=== PATIENT | male | born 1985 | race Caucasian/White ===

== ENCOUNTER 2018-05-05 14:44 | Emergency (ER) | payer OTHER, SELFPAY ==
[2018-05-05 14:45] VITALS: BP 157/97; PULSE 95; RESP 16; TEMP 37.3; O2SAT 97; BMI 26.2
--- NOTE | 2018-05-05 14:56 | ED.VISSUMM ---
- ER Visit Summary Date of Service: 05/05/18 Chief Complaint: Laceration volar surface right forearm History of Present Illness: The patient is a 33 M who is right-handed presents with laceration volar surface right forearm. He was pushing a [employer] upper ramp. Slipped. His forearm scraped across the license plate. Immunization is not up-to-date. He denies paresthesia, anesthesia motor weakness. He is able to move all his digits. He is on no medication has no allergies. Physical Examination: Vital signs are marked for an elevated blood pressure 157/97. Patient has a gaping laceration volar surface distal third right forearm. The fascia was not violated. There is no visible ligaments or tendons noted. He is able to extend and flex at the wrist. Flexor digitorum superficialis and flexor digitorum profundus are intact in all of his fingers. Sensation is intact. Capillary refill is normal. Test Results: None Emergency Department Course and Treatment: The wound was anesthetized 1% lidocaine. The wound was irrigated with normal saline. Using 4-0 Ethilon vertical mattress stitches were placed. Treatment Plan: Wound care Disposition: Discharged home in stable improved condition Impression: Laceration volar surface right forearm 4.0 cm initial encounter This note was generated with [employer] dictation software. It may contain incorrect words, spelling, and punctuation that were not noted in review of the chart prior to signing ED Disposition - Plan for ED Patient: Disposition: Home or Assisted Living Chief Complaint: Laceration Instructions: ED Laceration Ext Sutr Stap Tape Referrals: [facility],Out of [Primary Care Provider] - 10 Day for suture removal Additional Instructions: 1. Clean wound with peroxide and Q-tip 3 times a day then apply bacitracin ointment. 2. Keep wound clean and dry for the next 72 hours. 3. Wrap with Cristóbal wrap before any physical activity
--- NOTE | 2018-05-05 14:59 | ED.DCSUM_ITS ---
- ER Visit Summary Date of Service: 05/05/18 Chief Complaint: Laceration volar surface right forearm History of Present Illness: The patient is a 33 M who is right-handed presents with laceration volar surface right forearm. He was pushing a [employer] upper ramp. Slipped. His forearm scraped across the license plate. Immunization is not up-to-date. He denies paresthesia, anesthesia motor weakness. He is able to move all his digits. He is on no medication has no allergies. Physical Examination: Vital signs are marked for an elevated blood pressure 157/ 97. Patient has a gaping laceration volar surface distal third right forearm. The fascia was not violated. There is no visible ligaments or tendons noted. He is able to extend and flex at the wrist. Flexor digitorum superficialis and flexor digitorum profundus are intact in all of his fingers. Sensation is intact. Capillary refill is normal. Test Results: None Emergency Department Course and Treatment: The wound was anesthetized 1% lidocaine. The wound was irrigated with normal saline. Using 4-0 Ethilon vertical mattress stitches were placed. Treatment Plan: Wound care Disposition: Discharged home in stable improved condition Impression: Laceration volar surface right forearm 4.0 cm initial encounter This note was generated with [employer] dictation software. It may contain incorrect words, spelling, and punctuation that were not noted in review of the chart prior to signing ED Disposition - Plan for ED Patient: Disposition: Home or Assisted Living Chief Complaint: Laceration Instructions: ED Laceration Ext Sutr Stap Tape Referrals: [facility] Doctor,Out of [Primary Care Provider] - 10 Day for suture removal Additional Instructions: 1. Clean wound with peroxide and Q-tip 3 times a day then apply bacitracin ointment. 2. Keep wound clean and dry for the next 72 hours. 3. Wrap with Cristóbal wrap before any physical activity
[2018-05-05] MEDS: Diphth,Pertuss(Acell),Tet Vac 0.5 ML Vial IM (15:06)
== END 2018-05-05 15:36 | disposition home or self-care (01) ==
PROVIDERS: Emergency Provider Emergency Medicine
DX: S51.811A Laceration without foreign body of right forearm, initial encounter (principal); W45.8XXA Other foreign body or object entering through skin, initial encounter; Y93.89 Activity, other specified; Y92.9 Unspecified place or not applicable; Y99.9 Unspecified external cause status; Z23 Encounter for immunization; R03.0 Elevated blood-pressure reading, without diagnosis of hypertension
CPT/HCPCS: 12002; 90471; 90715; 99283